=== PATIENT | female | born 1965 | race Caucasian/White ===

== ENCOUNTER → 2018-09-23 | Day surgery (SDC) | payer OTHER ==
--- NOTE | 2018-09-24 17:04 | PATH ---
Cytology Non-Gynecological Report Patient Name: BRENDA TOTH [facility]. Rec. #: [id number] /Age/Gender: 1965 (Age: 53) / F Account: [id number] Location: RADIOLOGY INTER Taken: 09/23/2018 Received: 09/23/2018 Reported: 09/24/2018 Physicians: Jerri Cooper M.D. Specimen(s) Received THYROID FNA RIGHT Clinical History Right thyroid nodule, 5.55 x 3.05 x 4.90 cm Final Diagnosis THYROID, RIGHT, FINE NEEDLE ASPIRATION: UNSATISFACTORY FOR EVALUATION. BETHESDA CLASS I: NON-DIAGNOSTIC. RARE FOLLICULAR IN A HEMORRHAGIC BACKGROUND PRESENT. Comment: The specimen has insufficient follicular cell clusters and/or colloid; and suboptimal for complete cytopathologic evaluation according to [facility] for Reporting Thyroid FNA. If the nodule has worrisome ultrasound imaging properties, suggest repeat FNA, as warranted. Electronically Signed Milena Richards M.D. Gross Description Received are eight direct smears, four of which are air-dried and Diff-Quik stained, and four of which are alcohol fixed and Pap stained. Also received is 20 ml of bloody formalin from which one cellblock is prepared.
== END | disposition home or self-care (01) ==
LOC: JRADIR 08:35
PROVIDERS: ATTEND Internal Medicine
PROC: 0G9K3ZX Drainage of Thyroid Gland, Percutaneous Approach, Diagnostic (ICD-10-PCS; principal; 2018-09-23)
PROC: BG44ZZZ Ultrasonography of Thyroid Gland (ICD-10-PCS; 2018-09-23)
DX: E04.1 Nontoxic single thyroid nodule (principal)
CPT/HCPCS: 10005; 76942; 88173; 88305-TC

== ENCOUNTER → 2018-10-08 | Day surgery (SDC) | payer OTHER ==
--- NOTE | 2018-10-09 17:15 | PATH ---
Cytology Non-Gynecological Report Patient Name: BRENDA TOTH [facility]. Rec. #: [id number] /Age/Gender: 1965 (Age: 53) / F Account: [id number] Location: RADIOLOGY INTER Taken: 10/08/2018 Received: 10/08/2018 Reported: 10/09/2018 Physicians: Jerri Soares M.D. Specimen(s) Received THYROID FNA RIGHT Clinical History Right thyroid nodule, 5.48 x 2.64 x 4.36 cm Final Diagnosis THYROID, RIGHT, FINE NEEDLE ASPIRATION: SATISFACTORY FOR EVALUATION. BETHESDA CLASS II: BENIGN. CYTOLOGIC FINDINGS SHOW A BENIGN FOLLICULAR NODULE WITH FEATURES SUGGESTIVE OF CHRONIC LYMPHOCYTIC THYROIDITIS. FOLLICULAR CELLS WITH REACTIVE AND METAPLASTIC CHANGES DISPERSED CLUSTERS AND AGGREGATES IN A BACKGROUND OF SCATTERED LYMPHOCYTES, FEW LYMPHOHISTIOCYTIC AGGREGATES, AND FEW LYMPHOID TANGLES PRESENT. Comment: Suggest clinical/radiologic and serologic correlation. Electronically Signed Milena Richards M.D. Gross Description Received are eight direct smears, four of which are air-dried and Diff-Quik stained, and four of which are alcohol fixed and Pap stained. Also received is 20 ml of bloody formalin from which one cellblock is prepared.
== END | disposition home or self-care (01) ==
LOC: JRADIR 09:38
PROVIDERS: ATTEND Internal Medicine
PROC: 0G9H3ZX Drainage of Right Thyroid Gland Lobe, Percutaneous Approach, Diagnostic (ICD-10-PCS; principal; 2018-10-08)
PROC: BG44ZZZ Ultrasonography of Thyroid Gland (ICD-10-PCS; 2018-10-08)
DX: E04.1 Nontoxic single thyroid nodule (principal)
CPT/HCPCS: 10005; 76942; 88173; 88305-TC

== ENCOUNTER → 2020-05-22 | Day surgery (SDC) | payer OTHER ==
--- OUTSIDE RECORDS SUMMARY | 2020-05-22 05:10 | XMS ---
:1965 Author Organization [facility] Support Name Relationship Address Phone [employer] Unavailable [address] [facility] [place] [address] RUDI LEIGH DAUGHTER [address] [place] [address] Re-disclosure Warning The records that you are about to access may contain information from federally- assisted alcohol or drug abuse programs. If such information is present, then the following federally mandated warning applies: This information has been disclosed to you from records protected by federal confidentiality rules (42 CFR part 2). The federal rules prohibit you from making any further disclosure of this information unless further disclosure is expressly permitted by the written consent of the person to whom it pertains or as otherwise permitted by 42 CFR part 2. A general authorization for the release of medical or other information is NOT sufficient for this purpose. The Federal rules restrict any use of the information to criminally investigate or prosecute any alcohol or drug abuse patient.The records that you are about to access may contain highly sensitive health information, the redisclosure of which is protected by Article 27-F of the [place] State Public Health law. If you continue you may haveaccess to information: Regarding HIV / AIDS; Provided by facilities licensed or operated by the [facility] Office of Mental Health; or Provided by the [facility] Office for People With Developmental Disabilities. If such information is present, then the following [facility] mandated warning applies: This information has been disclosed to you from confidential records which are protected by state law. State law prohibits you from making any further disclosure of this information without the specific written consent of the person to whom it pertains, or as otherwise permitted by law. Any unauthorized further disclosure in violation of state law may result in a fine or assisted sentence or both. A general authorization for the release of medical or other information is NOT sufficient authorization for further disclosure. Insurance Providers Payer name Policy type Policy ID Covered Covered constitution party's Policy P janny / Coverage constitution party ID relationship to Frost Inf ormation type frost [employer] [id number] 400 [employer] NON CAP [place] [id number] 400 HE[employer] NON CAP
--- NOTE | 2020-05-25 10:37 | PATH ---
Cytology Non-Gynecological Report Patient Name: BRENDA TOTH [facility]. Rec. #: [id number] /Age/Gender: 1965 (Age: 54) / F Account: [id number] Location: RADIOLOGY INTER Taken: 05/22/2020 Received: 05/22/2020 Reported: 05/25/2020 Physicians: Jerri Cooper M.D. Specimen(s) Received THYROID FNA Clinical History Right lobe nodule Final Diagnosis THYROID, RIGHT, FINE NEEDLE ASPIRATION: SATISFACTORY FOR EVALUATION BETHESDA CLASS II: BENIGN CYTOLOGIC FINDINGS ARE CONSISTENT WITH A BENIGN FOLLICULAR NODULE. SMALL FOLLICULAR CELLS AND COLLOID PRESENT. Electronically Signed Cesario Gao M.D. Gross Description Received are eight direct smears, four of which are air-dried and Diff-Quik stained, and four of which are alcohol fixed and Pap stained. Also received is 20 ml of bloody formalin from which one cellblock is prepared.
== END | disposition home or self-care (01) ==
LOC: JRADIR 05:07
PROVIDERS: ATTEND Otolaryngology
PROC: 0G9K3ZX Drainage of Thyroid Gland, Percutaneous Approach, Diagnostic (ICD-10-PCS; principal; 2020-05-22)
DX: E04.1 Nontoxic single thyroid nodule (principal)
CPT/HCPCS: 76942; 88173; 88305-TC